=== PATIENT | female | born 1995 | race Caucasian/White ===

== ENCOUNTER 2018-10-26 03:08 | Emergency (ER) | payer BC ==
[~2018-10-26] VITALS: Ht 165.1 cm; Wt 67.1 kg
[~2018-10-26 03:08] MED LIST: NOHOMEMEDICATIONS; VIGAMOX3 M1 OPHTHALMIC; XANAX1 MG PO
[2018-10-26] MEDS ORDERED: CLEOCIN HCL150 MG PO (03:18)
[2018-10-26 04:17] LABS: HEMATOCRIT 37.4 % (37.0-47.0); HEMOGLOBIN 12.8 gm/dL (12.0-15.0); MCH 29.8 pg (26.0-34.0); MCHC 34.2 g/dL (28.0-37.0); MCV 87.1 fL (80.0-100.0); MPV 8.5 fl. (7.2-11.1); NUCLEATED RBCS 0 /100WBC; PLATELET COUNT* 241 thou/uL (150-400); RDW-CV 13.2 % (10.5-14.5)
[2018-10-26 04:30] LABS: CALCIUM 8.5 mg/dL (8.5-10.1); CREATININE 0.8 mg/dL (0.6-1.3); POTASSIUM 3.1 mmol/L (3.5-5.1)
[2018-10-26] MEDS ORDERED: PROMETH-CODEIN 65 ML PO (06:25)
[2018-10-26 06:33] VITALS: BP 93/61
[2018-10-26 06:47] LABS: ABSOLUTE MONOCYTES 0.4 thou/uL (0.0-1.2); ABSOLUTE NEUTROPHILS 8.6 thou/uL (1.6-8.1); PLATELET ESTIMATE ADEQUATE
== END 2018-10-26 06:33 | disposition home or self-care (01) ==
LOC: M.ERS 03:08
PROVIDERS: Emergency Medicine
DX: J03.90 Acute tonsillitis, unspecified (principal); F41.9 Anxiety disorder, unspecified; F17.210 Nicotine dependence, cigarettes, uncomplicated; Z88.2 Allergy status to sulfonamides

== ENCOUNTER → 2021-03-02 | Outpatient (CLI) | payer OTHER ==
[~2021-03-02] MED LIST changes: +CLEOCIN HCL150 MG PO; +PROMETH-CODEIN 65 ML PO
== END ==
LOC: M.ULTRA 03-01 15:42
PROVIDERS: ATTEND Family Medicine
DX: M79.601 Pain in right arm (principal); M79.602 Pain in left arm

== ENCOUNTER 2021-03-20 02:00 | Emergency (ER) | payer OTHER ==
[~2021-03-20] VITALS: Ht 165.1 cm; Wt 63.5 kg
[2021-03-20 02:46] LABS: HEMATOCRIT 42.3 % (37.0-47.0); HEMOGLOBIN 13.8 gm/dL (12.0-15.0); MCH 29.8 pg (26.0-34.0); MCHC 32.6 g/dL (28.0-37.0); MCV 91.6 fL (80.0-100.0); MPV 8.4 fl. (7.2-11.1); RBC 4.61 mil/uL (4.20-5.00); RDW-CV 13.7 % (10.5-14.5); WBC 7.3 thou/uL (4.0-11.0)
[2021-03-20 02:53] LABS: CALCIUM 8.4 mg/dL (8.5-10.1); CREATININE 0.7 mg/dL (0.6-1.3); POTASSIUM 3.2 mmol/L (3.5-5.1)
[2021-03-20 03:06] LABS: ALBUMIN 4.2 g/dL (3.4-5.0); CK-MB MASS 0.5 ng/mL (<0.5-3.6); TOTAL BILIRUBIN 0.3 mg/dL (<0.1-1.0); TOTAL PROTEIN 7.8 g/dL (6.4-8.2)
[2021-03-20 03:55] LABS: AMP/METHAMP Negative (Negative); BARBITURATES Negative (Negative); BENZODIAZEPINES Negative (Negative); COCAINE POSITIVE (Negative); METHADONE Negative (Negative); OPIATES Negative (Negative); PCP Negative (Negative); THC POSITIVE (Negative)
[2021-03-20 04:00] VITALS: BP 93/68
--- NOTE | 2021-03-20 09:43 | EKG ---
[place] [address] ELECTROCARDIOGRAM REPORT Name: ADWOA VAN Room: [facility]#: [id number] Admission: 03/20/21 Attend Phys: Discharge: 03/20/21 Date of : [birth year] Date of Service: 03/20/21204 Report #: [id number] THIS REPORT FOR: //name// [facility] ED Test Date: 2021-03-20 Test Time: 02:05:42 Pat Name: ADWOA VAN Department: Room: Gender: F [employer]: : 1995 Requested By: Sri Lopez Order Number: [id number] Jorge MD: Jerry Babcock Measurements Intervals [place] Rate: 120 P: 58 KS: 152 QRS: 81 QRSD: 102 T: -14 QT: 328 QTc: 464 Interpretive Statements Sinus tachycardia Probable left atrial enlargement Borderline T wave abnormalities No previous ECG available for comparison Electronically Signed On 03-20-2021 9:43:41 CDT by Jerry Babcock [email or web address] <ELECTRONICALLY SIGNED> By: Jerry Babcock MD, [facility] 03/20/21 [id number] Jerry Babcock MD, [facility] /EPI
== END 2021-03-20 04:00 | disposition home or self-care (01) ==
LOC: M.ERS 02:00
PROVIDERS: Personal Emergency Response Attendant
DX: F10.129 Alcohol abuse with intoxication, unspecified (principal); Y90.3 Blood alcohol level of 60-79 mg/100 ml; T43.695A Adverse effect of other psychostimulants, initial encounter; R29.0 Tetany; F17.210 Nicotine dependence, cigarettes, uncomplicated; Z88.2 Allergy status to sulfonamides; Z88.1 Allergy status to other antibiotic agents; Z79.899 Other long term (current) drug therapy; Y92.89 Other specified places as the place of occurrence of the external cause